=== PATIENT | female | born 2000 | race African-American/Black ===

== ENCOUNTER 2021-10-31 09:48 | Emergency (ER) | payer BC, SELFPAY ==
--- NOTE | 2021-10-31 10:11 | ED.URI ---
HPI - URI/Sore Throat General Chief Complaint: Upper Respiratory Infection Stated Complaint: SORE THROAT/HEADACHE/BODY ACHES Time Seen by Provider: 10/31/21 10:11 Source: patient, RN notes reviewed and old records reviewed Mode of arrival: ambulatory Limitations: no limitations History of Present Illness HPI Narrative: 20-year-old female presents to the [facility] with complaints of a sore throat, headache and body aches for 2 days. States that she has been sneezing. Denies any runny nose, chest pain, coughing, shortness of breath or abdominal pain. Has taken ibuprofen. LMP 10/31/21 States she took a COVID test last night at home which she reports is negative MD elicited complaint: sore throat Related Data Home Medications Medication Instructions Recorded Confirmed norgestimate-ethinyl estradiol 1 tablet PO DAILY 10/31/21 10/31/21 0.18 mg/0.215mg/0.25mg-35 mcg(28)tablet (Tri-Sprintec (28)) Allergies Allergy/AdvReac Type Severity Reaction Status Date / Time No Known Allergies Allergy Verified 10/31/21 10:17 Review of Systems Review of Systems: All systems reviewed & are unremarkable except as noted in HPI and below Constitutional: Constitutional: Reports no additional constitutional complaints, Denies chills and Denies fever(s) Eyes: Eyes: Reports no additional eye complaints ENT: Reports as per HPI, Denies nasal congestion, Reports sore throat and Reports other (Sneezing) Cardiovascular: Cardiovascular: Reports no additional cardiovascular complaints Respiratory: Respiratory: Reports no additional respiratory complaints Gastrointestinal: Gastrointestinal: Reports no additional gastrointestinal complaints Musculoskeletal: Musculoskeletal: Reports no additional musculoskeletal complaints Integumentary/Breasts: Skin/Breast: Reports system reviewed and no additional complaints, except as docu Neurologic: Reports system reviewed and no additional complaints, except as documented Psychiatric: Psychiatric: Reports no additional psychiatric complaints Allergic/Immunologic: Allergic/Immunologic: Reports no additional allergic/immunologic complaints PMFSH Past Medical History Medical History Patient denies significant medical history Surgical History Surgical History (Updated 10/31/21 @ 10:22 by Mimi Mcginnis APRN) History of hip surgery History of repair of ACL Social History Social History (Updated 10/31/21 @ 10:22 by KRISTIE Rosario Gender identity (if verbalized by the patient): Female Comments At the time of my signature, I reviewed and agree with the nursing past medical, surgical, social, and family history. There is no relevant family history pertinent to the patient complaint. Exam Const: General: healthy appearing, no acute distress and alert Nutritional Appearance: well nourished Orientation/consciousness: patient oriented x3 Limitations: no limitations HENMT: Head: normal to inspection Ears: external ears normal, TM's normal bilaterally and EAC's normal General nose exam: Normal external nose present and Normal nares present Face and sinus: normal facial exam Mouth: Yes Normal oral and palatal mucosa present, Yes lip normal and Yes moist mucous membranes Throat: posterior oropharynx normal and uvula midline Eyes: General: appearance normal, both eyes and all related structures Conjunctivae: conjunctivae normal Pupils: Equal, round and reactive pupils present Neck: Neck: normal visual inspection, no lymphadenopathy and no meningeal signs Chest: Chest palpation & inspection: normal inspection of the chest Resp: Effort & Inspection: normal respiratory effort and no use of accessory muscles Auscultation: clear to auscultation bilaterally, no crackles, no rales, no rhonchi and no wheezes Cardio: Rate: regular rate Rhythm: regular rhythm Back/Spine/Pelvis: Cervical Spine: normal cervical lordosis Thoracic/Candida
[2021-10-31 10:18] VITALS: BP 118/74; PULSE 85; RESP 16; TEMP 37.1; O2SAT 100
== END 2021-10-31 10:45 | disposition home or self-care (01) ==
PROVIDERS: Emergency Provider Nurse Practitioner
DX: J02.9 Acute pharyngitis, unspecified (principal)
CPT/HCPCS: 87081; 87880; 99213; G0463

== ENCOUNTER 2021-11-30 11:59 | Emergency (ER) | payer BC, SELFPAY ==
[2021-11-30 12:07] VITALS: BP 129/89; PULSE 122; RESP 20; TEMP 37; O2SAT 100
--- NOTE | 2021-11-30 12:10 | ED.URI ---
HPI - URI/Sore Throat General Chief Complaint: Upper Respiratory Infection Stated Complaint: trouble breathing, lower back pain Time Seen by Provider: 11/30/21 12:10 Source: patient, RN notes reviewed and old records reviewed Mode of arrival: ambulatory Limitations: no limitations History of Present Illness HPI Narrative: 21-year-old female who presents to [facility] with complaints of pain across mid back region and left lower anterior ribs and today feels like she can't take a deep breath. Patient reports that for the past 2 days she has had a hard frequent cough with runny nose and also some sore throat. Patient denies any known fevers, chills or sweats or body aches, she has had COVID vaccinations and flu shot last year. 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 Patient states that she has had low iron and had 3 iron infusions this past year found it when doing preop for elective plastic procedure. MD elicited complaint: cough and other (rib pain and mid back pain) Pertinent past history: other (low iron count) Onset (ago): day(s) (2) Exacerbating factors: other (cough) Treatments prior to arrival: none Related Data Home Medications Medication Instructions Recorded Confirmed norgestimate-ethinyl estradiol 1 tablet PO DAILY 10/31/21 10/31/21 0.18 mg/0.215mg/0.25mg-35 mcg(28)tablet (Tri-Sprintec (28)) Allergies Allergy/AdvReac Type Severity Reaction Status Date / Time No Known Allergies Allergy Verified 10/31/21 10:17 Review of Systems Review of Systems: CONSTITUTIONAL: Denies malaise, chills, sweats, or fever. EYES: Denies visual changes, redness, or discharge. ENT: Reports rhinorrhea,some sinus congestion, no sinus pain, otalgia or sore throat. CARDIOVASCULAR: Denies chest pain, palpitations, or edema. RESPIRATORY: Reports cough.? Denies any acute dyspnea, feels like she can't take a deep breath GASTROINTESTINAL: Denies abdominal pain, nausea, vomiting, diarrhea SKIN: Denies rash or itching. MUSCULOSKELETAL:Reports pain to left lower anterior rib area and across mid back associated with cough NEUROLOGIC: Denies headache. All systems reviewed & are unremarkable except as noted in HPI and below PMFSH Past Medical History Medical History (Updated 12/01/21 @ 08:27 by Mayra Calderon NP) Decreased iron stores Surgical History Surgical History (Updated 10/31/21 @ 10:22 by Mimi Mcginnis APRN) History of hip surgery History of repair of ACL Family History Family History (Updated 12/01/21 @ 08:27 by Mayra Calderon NP) Sibling Factor 5 Leiden mutation, heterozygous Social History Social History (Updated 10/31/21 @ 10:22 by Mimi Mcginnis APRN) Gender identity (if verbalized by the patient): Female Comments At time of signature, agree with nursing past medical, surgical, social and family history. There is no relevant family history pertinent to the presenting complaint Exam Narrative: GENERAL: Well-appearing, well-nourished, and in no acute distress. HEAD: Normocephalic EYES: PERRLA, conjunctivae clear ENT: Nares clear, turbinates edematous and erythematous, clear discharge. Mucous membranes moist. TM pearly holt with dull light reflex bilaterally; no tragal tenderness. Oropharynx erythematous without lesions. Tonsils not enlarged and without exudate, no drooling, no hoarseness, no trismus, uvula midline. NECK: Supple. No lymphadenopathy CHEST: Clear to auscultation, breath sounds equal. No wheezing, rhonchi, rales, or stridor. No respiratory distress, speaks in full sentences.SAO2 100% on room air HEART: Regular rate and rhythm. No murmur heard. SKIN: Warm, dry, no rash. NEURO: Alert and oriented x3. PSYCH: Normal mood and affect Course Course Emergency Course: Patient is aware of diagnosis, understands and agrees to treatmen
== END 2021-11-30 13:01 | disposition home or self-care (01) ==
PROVIDERS: Emergency Provider Registered Nurse
DX: R05.9 Cough, unspecified (principal); M94.0 Chondrocostal junction syndrome [Tietze]; Z20.822 Contact with and (suspected) exposure to COVID-19
CPT/HCPCS: 87426; 87804; 87880; 99213; C9803; G0463

== ENCOUNTER 2021-12-10 08:43 | Emergency (ER) | payer BC, SELFPAY ==
[2021-12-10 08:58] VITALS: BP 124/72; PULSE 92; RESP 16; TEMP 36.9; O2SAT 100
--- NOTE | 2021-12-10 09:25 | ED.EYEPROB ---
HPI - Eye Problem General Chief complaint: Eye Problems Stated complaint: eye discharge, redness in eyes Time Seen by Provider: 12/10/21 09:19 Source: patient Mode of arrival: ambulatory Limitations: no limitations History of Present Illness HPI Narrative: Patient presents today complaining of burning and watering to her bilateral eyes since last night. States she woke up several times last night with her eyes crusted shut, and woke up this morning with purulent discharge and photophobia. Related Data Home Medications Medication Instructions Recorded Confirmed norgestimate-ethinyl estradiol 1 tablet PO DAILY 10/31/21 12/10/21 0.18 mg/0.215mg/0.25mg-35 mcg(28)tablet (Tri-Sprintec (28)) Allergies Allergy/AdvReac Type Severity Reaction Status Date / Time No Known Allergies Allergy Verified 12/10/21 08:53 Review of Systems Review of Systems: CONSTITUTIONAL: Denies body aches, fever, chills, or sweats. EYES: Denies visual changes. + Bilateral redness, discharge, photophobia ENT: Denies rhinorrhea, congestion, sore throat, or otalgia. CARDIOVASCULAR: Denies chest pain, palpitations, or edema. RESPIRATORY: Denies cough or dyspnea. GASTROINTESTINAL: Denies abdominal pain, nausea, vomiting, or diarrhea. GENITOURINARY: Denies dysuria or hematuria. SKIN: Denies rash, itching, or wounds. MUSCULOSKELETAL: Denies back pain, joint pain, or myalgia. NEUROLOGIC: Denies headache, numbness, tingling, or weakness. PSYCH: Denies depression or anxiety. [facility] Past Medical History Medical History Decreased iron stores Surgical History Surgical History History of hip surgery History of repair of ACL Family History Family History Sibling Factor 5 Leiden mutation, heterozygous Social History Social History Gender identity (if verbalized by the patient): Female Comments At time of signature, I have reviewed and agree with nursing past medical, surgical, social and family history unless otherwise noted. Please see nursing chart for further information. There is no relevant family history pertinent to the presenting complaint Exam Narrative: GENERAL: Well-appearing, well-nourished, and in no acute distress. HEAD: Normocephalic, atraumatic. EYES: EOMI. PERRL. Bilateral injected conjunctiva with green purulent discharge and crusted lashes. Slight swelling of eyelids. ENT: Mucous membranes pink and moist. Nares clear. No rhinorrhea. NECK: Normal AROM. CHEST: No respiratory distress. EXTREMITIES: Normal range of motion. No edema. SKIN: Warm, dry, no rash. Capillary refill normal. Normal skin turgor. NEURO: No focal deficits. Alert and oriented x3. Gait steady. PSYCH: Normal affect. No signs of depression or anxiety. Course Course Level of Care: Express Care Visit Vital Signs Vital signs: Vital Signs Temperature 98.5 F 12/10/21 08:58 Pulse Rate 92 12/10/21 08:58 Respiratory Rate 16 12/10/21 08:58 Blood Pressure 124/72 12/10/21 08:58 Pulse Oximetry 100 12/10/21 08:58 Temperature 98.5 F 12/10/21 08:58 Pulse Rate 92 12/10/21 08:58 Respiratory Rate 16 12/10/21 08:58 Blood Pressure 124/72 12/10/21 08:58 Pulse Oximetry 100 12/10/21 08:58 Reviewed. Pt has been instructed to follow up with her PCP regarding her elevated blood pressure today. MDM - Eye Problem Differential Diagnosis Differential diagnosis: Likely conjunctivitis, periorbital cellulitis and other (uri) Critical Care Time Critical Care Time Critical Care Time: No Discharge Plan Discharge Clinical Impression: Acute bacterial conjunctivitis of both eyes Patient Disposition: Home, Self-Care Condition: Stable Instructions: Conjunctivitis (ED)
== END 2021-12-10 09:35 | disposition home or self-care (01) ==
PROVIDERS: Emergency Provider Nurse Practitioner
DX: H10.33 Unspecified acute conjunctivitis, bilateral (principal)
CPT/HCPCS: 99213; G0463

== ENCOUNTER 2022-04-18 11:34 | Emergency (ER) | payer BC, SELFPAY ==
--- NOTE | 2022-04-18 11:48 | ED.URI ---
HPI - URI/Sore Throat General Chief Complaint: Upper Respiratory Infection Stated Complaint: nose itching and burning Time Seen by Provider: 04/18/22 11:48 Source: patient and RN notes reviewed History of Present Illness HPI Narrative: Patient is a 21-year-old female presents to urgent care with complaints of nasal itching and burning for approximately 2 weeks. Patient states she has been taking Benadryl. Denies any other upper respiratory complaints or fever. No other acute complaints. No acute distress noted. Patient aware of the plan of care. Some parts of this dictation were generated by voice recognition software and may contain typographical and/or grammatical inaccuracies. Related Data Home Medications Medication Instructions Recorded Confirmed norgestimate-ethinyl estradiol 1 tablet PO DAILY 10/31/21 04/18/22 0.18 mg/0.215mg/0.25mg-35 mcg(28)tablet (Tri-Sprintec (28)) Allergies Allergy/AdvReac Type Severity Reaction Status Date / Time No Known Allergies Allergy Verified 04/18/22 12:15 Review of Systems Review of Systems: CONSTITUTIONAL: Denies fever, chills, or sweats. EYES: Denies visual changes, redness, or discharge. ENT: Denies rhinorrhea, congestion, sore throat, or otalgia. reports of nasal irritation CARDIOVASCULAR: Denies chest pain, palpitations, or edema. RESPIRATORY: Denies cough or dyspnea. GASTROINTESTINAL: Denies abdominal pain, nausea, vomiting, or diarrhea. GENITOURINARY: Denies dysuria or hematuria. SKIN: Denies rash or itching. MUSCULOSKELETAL: Denies back pain, joint pain, or myalgia. NEUROLOGIC: Denies headache, numbness, or weakness. All other systems reviewed are negative, except as documented in HPI. [facility] Past Medical History Medical History Decreased iron stores Surgical History Surgical History History of hip surgery History of repair of ACL Family History Family History Sibling Factor 5 Leiden mutation, heterozygous Social History Social History Gender identity (if verbalized by the patient): Female Comments At the time of my signature, I reviewed and agree with the nursing past medical, surgical, social, and family history. There is no relevant family history pertinent to the patient complaint. Exam Narrative: GENERAL: This is a well-nourished, well-developed patient, in no apparent distress. HEAD: normocephalic, atraumatic. EYES: PERRL. Sclera clear/white. Vision is grossly intact. EARS: External ears normal, auditory canals clear and without drainage, TMs normal without perforation. Hearing grossly intact. NOSE: External nose normal with no obvious nasal discharge. Moderate erythema with mild edema to bilateral nasal tuberosities with clear rhinorrhea. THROAT: Mucous membranes moist, posterior pharynx clear. NECK: Neck supple NEURO: awake, alert, and oriented to person, place and time. There were no obvious focal neurologic abnormalities. EXTREMITIES: No clubbing, cyanosis, or edema. Course Course Level of Care: Express Care Visit Vital Signs Vital signs: Vital Signs Temperature 97 F L 04/18/22 12:18 Pulse Rate 98 04/18/22 12:18 Respiratory Rate 14 04/18/22 12:18 Blood Pressure 111/73 04/18/22 12:18 Pulse Oximetry 100 04/18/22 12:18 Oxygen Delivery Room Air 04/18/22 12:18 Temperature 97 F L 04/18/22 12:18 Pulse Rate 98 04/18/22 12:18 Respiratory Rate 14 04/18/22 12:18 Blood Pressure 111/73 04/18/22 12:18 Pulse Oximetry 100 04/18/22 12:18 Oxygen Delivery Room Air 04/18/22 12:18 Reviewed MDM - URI/Sore Throat MDM Narrative Medical decision making narrative: Advised patient to use the Flonase nasal spray twice a day for the next 3-5 days and then once prior to
[2022-04-18 12:18] VITALS: BP 111/73; PULSE 98; RESP 14; TEMP 36.1; O2SAT 100
== END 2022-04-18 12:31 | disposition home or self-care (01) ==
PROVIDERS: Emergency Provider Nurse Practitioner Family
DX: J30.9 Allergic rhinitis, unspecified (principal)
CPT/HCPCS: 99213; G0463

== ENCOUNTER 2022-05-18 18:19 | Emergency (ER) | payer BC, SELFPAY ==
--- NOTE | 2022-05-18 18:25 | ED.URI ---
HPI - URI/Sore Throat General Chief Complaint: Upper Respiratory Infection Stated Complaint: chills,bodyache,difficulty swallowing Time Seen by Provider: 05/18/22 18:38 Source: patient and RN notes reviewed Mode of arrival: ambulatory Limitations: no limitations History of Present Illness HPI Narrative: 21-year-old female presents with concern for 2 day history of chills, body aches, sore throat. She reports bilateral ear pain and pressure and feeling lightheaded. MD elicited complaint: sore throat Related Data Home Medications Medication Instructions Recorded Confirmed norgestimate-ethinyl estradiol 1 tablet PO DAILY 10/31/21 05/18/22 0.18 mg/0.215mg/0.25mg-35 mcg(28)tablet (Tri-Sprintec (28)) Allergies Allergy/AdvReac Type Severity Reaction Status Date / Time No Known Allergies Allergy Verified 05/18/22 18:26 Review of Systems Review of Systems: CONSTITUTIONAL: Reports malaise, chills. Denies sweats or fever. EYES: Denies visual changes, redness, or discharge. ENT: Denies rhinorrhea, congestion, sinus pain. Reports otalgia and sore throat. CARDIOVASCULAR: Denies chest pain, palpitations, or edema. RESPIRATORY: Denies cough. Denies dyspnea. GASTROINTESTINAL: Denies abdominal pain, nausea, vomiting, diarrhea SKIN: Denies rash or itching. MUSCULOSKELETAL: Reports myalgia. NEUROLOGIC: Denies headache. All systems reviewed & are unremarkable except as noted in HPI and below PMFSH Past Medical History Medical History Decreased iron stores Surgical History Surgical History History of hip surgery History of repair of ACL Family History Family History Sibling Factor 5 Leiden mutation, heterozygous Social History Social History Gender identity (if verbalized by the patient): Female Comments At time of signature, agree with nursing past medical, surgical, social and family history. There is no relevant family history pertinent to the presenting complaint Exam Narrative: GENERAL: Well-appearing, well-nourished, and in no acute distress. HEAD: Normocephalic EYES: PERRLA, conjunctivae clear ENT: Nares clear, turbinates edematous and erythematous, clear discharge. Mucous membranes moist. TM pearly holt with dull light reflex bilaterally; no tragal tenderness. Oropharynx not erythematous without lesions. Tonsils not enlarged and without exudate, no drooling, no hoarseness, no trismus, uvula midline. NECK: Supple. No lymphadenopathy CHEST: Clear to auscultation, breath sounds equal. No wheezing, rhonchi, rales, or stridor. No respiratory distress, speaks in full sentences. HEART: Regular rate and rhythm. No murmur heard. SKIN: Warm, dry, no rash. NEURO: Alert and oriented x3. PSYCH: Normal mood and affect Course Course Emergency Course: Patient is aware of diagnosis, understands and agrees to treatment plan. Anticipatory guidance given. Patient agrees to follow-up as directed and is aware of reasons to seek care at the emergency department. Portions of this record may have been created with voice recognition software Level of Care: Express Care Visit Vital Signs Vital signs: Reviewed. MDM - URI/Sore Throat MDM Narrative Medical decision making narrative: Differential diagnosis considered: [place] virus, strep pharyngitis, allergic rhinitis, upper respiratory tract infection, sinusitis, rhinosinusitis, nasopharyngitis. viral pharyngitis, otitis media, otitis externa, pneumonia, bronchitis, viral cough syndrome, viral syndrome, and influenza. Exam findings show no acute concerns or changes; patient is non-toxic appearing and is in no distress. Patient is appropriate for outpatient treatment and follow-up. Lab Data Attestation: I reviewed the patient's lab r
[2022-05-18 18:32] VITALS: BP 108/73; PULSE 113; RESP 16; TEMP 37.5; O2SAT 98
== END 2022-05-18 18:56 | disposition home or self-care (01) ==
PROVIDERS: Emergency Provider Nurse Practitioner
DX: J10.1 Influenza due to other identified influenza virus with other respiratory manifestations (principal); Z20.822 Contact with and (suspected) exposure to COVID-19
CPT/HCPCS: 87081; 87426; 87804; 87880; 99213; C9803; G0463

== ENCOUNTER 2023-02-23 12:39 | Outpatient (CLI) | payer BC, SELFPAY ==
[2023-02-23] MEDS: FAMOTIDINE 20 MG TABLET PO (12:40)
[2023-02-23] MEDS: diphenhydrAMINE HCl CAP 25 MG CAPSULE PO (12:40)
[2023-02-23 13:02] VITALS: BP 107/73; PULSE 92; RESP 14; TEMP 36.5; O2SAT 99; BMI 25.4
[2023-02-23] MEDS: SODIUM CHLORIDE 0.9% IV 250 ML 483.87 ML IVPB (13:45)
[2023-02-23 14:23] VITALS: BP 108/72; PULSE 72; RESP 14; TEMP 36.6; O2SAT 100
--- NOTE | 2023-02-23 14:24 | PC.NURSE ---
Patient here for #1 of 2 IV Ferahem infusion. Education given. All concerns answered. Premedicated with Pepcid and Benadryl PO as ordered (she did not have that home to take prior as ordered read). IV Ferahem administered See APR. Tolerated well. No s/sx of infusion reaction noted or reported. IV NS 250 ml over 30 minutes administered and observation of patient. Again no s/sx of infusion reaction noted or reported. Safe exit of hospital ambulatory with friend. Will return 03/02/23 at 1230 for #2 IV Ferahem.
== END 2023-02-23 12:40 | disposition home or self-care (01) ==
LOC: CHSTREATRM 12:43
PROVIDERS: Visit Provider Internal Medicine Hematology & Oncology
DX: D50.9 Iron deficiency anemia, unspecified (principal)
CPT/HCPCS: 96360; 96365; A9270; J7050; Q0138

== ENCOUNTER 2023-03-02 12:33 | Outpatient (CLI) | payer BC, SELFPAY ==
[2023-03-02] MEDS: diphenhydrAMINE HCl CAP 25 MG CAPSULE PO (12:50)
[2023-03-02] MEDS: FAMOTIDINE 20 MG TABLET PO (12:50)
[2023-03-02 12:57] VITALS: BP 101/60; PULSE 72; RESP 14; TEMP 36.5; O2SAT 98; BMI 25.4
[2023-03-02] MEDS: SODIUM CHLORIDE 0.9% IV 250 ML 500 ML IVPB (13:35)
--- NOTE | 2023-03-02 14:13 | PC.NURSE ---
Patient here for Iron infusion #2 of 2. Reports did well with last week's infusion. Education given. No concerns voiced. Premedicated as ordered. IV Faraheme administered. SEE MAR. Tolerated well. Safe exit of hospital per self/ambulatory.
[2023-03-02 14:15] VITALS: BP 110/69; PULSE 72; RESP 14; O2SAT 99
== END 2023-03-02 12:34 | disposition home or self-care (01) ==
PROVIDERS: Visit Provider Internal Medicine Hematology & Oncology
DX: D50.9 Iron deficiency anemia, unspecified (principal)
CPT/HCPCS: 96360; 96365; A9270; Q0138